=== PATIENT | male | born 1980 | race American Indian/Alaskan Native ===

== ENCOUNTER 2017-08-06 12:13 | Emergency (ER) | payer MEDICAID ==
[2017-08-06] MEDS ORDERED: Sodium Chloride 0.9% 10 ML Syringe FLUSH PRN (12:26)
--- NOTE | 2017-08-06 12:50 | EDM.PDOC ---
ED HPI GENERAL MEDICAL PROBLEM - General Chief Complaint: Neuro Symptoms/Deficits Stated Complaint: CAME BY AMBULANCE Time Seen by Provider: 08/06/17 12:30 Source of Information: Reports: Patient, EMS, EMS Notes Reviewed, RN, RN Notes Reviewed History Limitations: Reports: No Limitations - History of Present Illness INITIAL COMMENTS - FREE TEXT/NARRATIVE: Pt presents to the ER per ambulance with c/o dizziness beginning this morning. He states he has fallen into a wall while walking due to the dizziness. He states he has a pressure on the top of his head. When asked to rate the pain, he states it is not a pain, but a pressure in the top of his head. He states his vision is blurry at times with the dizziness. Patient denies fever, chills, chest pain, sob, N/V/D. Onset: Today, Sudden Duration: Getting Worse Location: Reports: Head Quality: Reports: Pressure Severity: Severe Improves with: Reports: None Worsens with: Reports: None Context: Reports: Activity Associated Symptoms: Reports: No Other Symptoms - Related Data Allergies Allergy/AdvReac Type Severity Reaction Status Date / Time codeine Allergy Hives Verified 08/06/17 12:41 Home Meds: Home Meds Acetaminophen 1 tab PO Q6H PRN 06/04/16 [History] Albuterol [Proventil HFA] 2 puff INH Q6H PRN 06/04/16 [History] Melatonin 3 mg PO BEDTIME PRN 06/04/16 [History] Ondansetron [Ondansetron] 4 mg PO Q12H PRN 06/04/16 [History] Polyethylene Glycol 3350 [MiraLAX] 17 gm PO DAILY 06/22/16 [History] Buprenorphine HCl/Naloxone HCl [Zubsolv 8.6-2.1 mg Tablet Sl] 2 each PO DAILY [History] Escitalopram [Lexapro] 20 mg PO BEDTIME 08/06/17 [History] buPROPion [Wellbutrin SR] 100 mg PO DAILY 08/06/17 [History] Past Medical History HEENT History: Reports: None Cardiovascular History: Reports: Hypertension Respiratory History: Reports: Asthma Gastrointestinal History: Reports: Chronic Constipation, GERD Genitourinary History: Reports: None Musculoskeletal History: Reports: None Neurological History: Reports: None Psychiatric History: Reports: Anxiety, Other (See Below) Other Psychiatric History: TOBACCO HABITUATION, narcotic dependence per progress note of Kaley Monzon Endocrine/Metabolic History: Reports: None Hematologic History: Reports: None Immunologic History: Reports: None Oncologic (Cancer) History: Reports: None Dermatologic History: Reports: Other (See Below) Other Dermatologic History: mosquito bites that won't heal - Infectious Disease History Other Infectious Disease History: unsure of infectious health hx - Past Surgical History Head Surgeries/Procedures: Reports: None HEENT Surgical History: Reports: None Cardiovascular Surgical History: Reports: None GI Surgical History: Reports: None Social & Family History - Family History Cardiac: Reports: CAD Endocrine/Metabolic: Reports: Diabetes, type II - Tobacco Use Smoking Status *Q: Never Smoker Years of Tobacco use: 21 Packs/Tins Daily: 0.5 Second Hand Smoke Exposure: Yes - Caffeine Use Caffeine Use: Reports: Soda - Recreational Drug Use Recreational Drug Use: No Recreational Drug Type: ED ROS GENERAL - Review of Systems Review Of Systems: ROS reveals no pertinent complaints other than HPI. ED EXAM, DIZZINESS - Physical Exam Exam: See Below Exam Limited By: No Limitations General Appearance: Alert, WD/WN, No Apparent Distress Ears: Normal External Exam Nose: Normal Inspection Throat/Mouth: Normal Inspection, Normal Voice, No Airway Compromise Head Exam: Atraumatic, Normocephalic Neck: Normal Inspection, Supple, Non-Tender, Full Range of Motion Respiratory/Chest: No Respiratory Distress, Lungs Clear, Normal Breath Sounds, No Accessory Muscle Use, Chest Non-Tender Cardiovascular: Normal Peripheral Pulses, Regular Rate, Rhythm, No Edema, No Gallop, No JVD, No Murmur, No Rub GI/Abdominal: Normal Bowel Sounds, Soft, Non-Tender, No Organomegaly, No Distention, No Abnormal Bruit, No Mass (Male) Exam: Deferred Rectal (Males) Exam: Deferred Neurological: Alert, No Motor/Sensory Deficits, Oriented x 3 Back Exam: Normal Inspection, Full Range of Motion Extremities: Normal Inspection, Normal Range of Motion, Non-Tender, No Pedal Edema, Normal Capillary Refill Psychiatric: Anxious Skin Exam: Warm, Intact, Normal Color, No Rash, Diaphoretic EKG INTERPRETATION EKG Date: 08/06/17 Time: 13:02 Rhythm: NSR Miles: Normal P-Wave: Present QRS: Normal ST-T: Normal QT: Normal Comparison: NA - No Prior EKG Course - Vital Signs Last Recorded V/S: Last Vital Signs Temp 97.3 F 08/06/17 12:50 Pulse 83 08/06/17 12:50 Resp 15 08/06/17 12:50 BP 152/81 H 08/06/17 12:50 Pulse Ox 99 08/06/17 12:50 - Orders/Labs/Meds Orders: Active Orders 24 hr Category Date Time Status EKG Documentation Completion [RC] STAT Care 08/06/17 12:27 Active Peripheral IV Care [RC] . DIRECTED Care 08/06/17 12:27 Active Sodium Chloride 0.9% [Saline Flush] Med 08/06/17 12:26 Active 10 ml FLUSH ASDIRECTED PRN Peripheral IV Insertion Adult [OM.PC] Stat Oth 08/06/17 12:26 Ordered Medication Orders Sodium Chloride (Saline Flush) 10 ml FLUSH ASDIRECTED PRN PRN Reason: Keep Vein Open Last Admin: 08/06/17 14:30 Dose: 10 ml Labs: Laboratory Tests 08/06/17 08/06/17 08/06/17 Range/Units 12:34 12:34 13:41 WBC 6.4 (5.0-10.0) 10^3/uL RBC 5.12 (4.6-6.2) 10^6/uL Hgb 15.2 (14.0-18.0) g/dL Hct 43.9 (40.0-54.0) % MCV 85.7 (80-100) fL MCH 29.7 (27.0-34.0) pg MCHC 34.6 (33.0-35.0) g/dL Plt Count 256 (150-450) 10^3/uL Neut % (Auto) 59.4 (42.2-75.2) % Lymph % (Auto) 27.9 (20.5-50.1) % [place] % (Auto) 8.5 H (2-8) % Eos % (Auto) 3.9 H (1.0-3.0) % Baso % (Auto) 0.3 (0.0-1.0) % Sodium 141 (135-145) mmol/L Potassium 3.5 L (3.6-5.0) mmol/L Chloride 104 (101-111) mmol/L Carbon Dioxide 26.0 (21.0-31.0) mmol/L Anion Gap 14.5 BUN 7 (7-18) mg/dL Creatinine 0.7 (0.6-1.3) mg/dL Est Cr Clr Drug Dosing 145.89 mL/min Estimated GFR (MDRD) > 60 BUN/Creatinine Ratio 10.00 Glucose 95 (74-105) mg/dL Calcium 9.5 (8.4-10.2) mg/dl Total Bilirubin 0.5 (0.2-1.0) mg/dL AST 52 H (10-42) IU/L ALT 69 H (10-60) IU/L Alkaline Phosphatase 138 H (42-121) IU/L Troponin I < 0.02 (0.00-0.02) ng/ml Total Protein 7.7 (6.7-8.2) g/dl Albumin 4.4 (3.2-5.5) g/dl Globulin 3.3 Albumin/Globulin Ratio 1.33 Urine Color (YELLOW) Urine Appearance (CLEAR) Urine pH (5.0-9.0) Ur Specific [place] (1.005-1.030) Urine Protein (NEGATIVE) Urine Glucose (UA) (NEGATIVE) Urine Ketones (NEGATIVE) Urine Occult Blood (NEGATIVE) Urine Nitrite (NEGATIVE) Urine Bilirubin (NEGATIVE) Urine Urobilinogen (0.2-1.0) mg/dL Ur Leukocyte Esterase (NEGATIVE) Urine RBC /HPF Urine WBC (0-5/HPF) /HPF Ur Epithelial Cells /HPF Urine Bacteria (0-FEW/HPF) /HPF Urine Mucus /LPF Urine Opiates Screen Negative (NEGATIVE) Ur Oxycodone Screen Negative (NEGATIVE) Urine Methadone Screen Negative (NEGATIVE) Ur Barbiturates Screen Negative (NEGATIVE) U Tricyclic Antidepress Negative (NEGATIVE) Ur Phencyclidine Scrn Negative (NEGATIVE) Ur Amphetamine Screen Negative (NEGATIVE) U Methamphetamines Scrn Negative (NEGATIVE) Urine MDMA Screen Negative (NEGATIVE) U Benzodiazepines Scrn Negative (NEGATIVE) Urine Cocaine Screen Negative (NEGATIVE) U Marijuana (THC) Screen Negative (NEGATIVE) Ethyl Alcohol < 5 mg/dL 08/06/17 Range/Units 13:41 WBC (5.0-10.0) 10^3/uL RBC (4.6-6.2) 10^6/uL Hgb (14.0-18.0) g/dL Hct (40.0-54.0) % MCV (80-100) fL MCH (27.0-34.0) pg MCHC (33.0-35.0) g/dL Plt Count (150-450) 10^3/uL Neut % (Auto) (42.2-75.2) % Lymph % (Auto) (20.5-50.1) % [place] % (Auto) (2-8) % Eos % (Auto) (1.0-3.0) % Baso % (Auto) (0.0-1.0) % Sodium (135-145) mmol/L Potassium (3.6-5.0) mmol/L Chloride (101-111) mmol/L Carbon Dioxide (21.0-31.0) mmol/L Anion Gap BUN (7-18) mg/dL Creatinine (0.6-1.3) mg/dL Est Cr Clr Drug Dosing mL/min Estimated GFR (MDRD) BUN/Creatinine Ratio Glucose (74-105) mg/dL Calcium (8.4-10.2) mg/dl Total Bilirubin (0.2-1.0) mg/dL AST (10-42) IU/L ALT (10-60) IU/L Alkaline Phosphatase (42-121) IU/L Troponin I (0.00-0.02) ng/ml Total Protein (6.7-8.2) g/dl Albumin (3.2-5.5) g/dl Globulin Albumin/Globulin Ratio Urine Color Straw (YELLOW) Urine Appearance Clear (CLEAR) Urine pH 5.5 (5.0-9.0) Ur Specific [place] >= 1.030 (1.005-1.030) Urine Protein Negative (NEGATIVE) Urine Glucose (UA) Negative (NEGATIVE) Urine Ketones Trace H (NEGATIVE) Urine Occult Blood Trace-intact H (NEGATIVE) Urine Nitrite Negative (NEGATIVE) Urine Bilirubin Small H (NEGATIVE) Urine Urobilinogen 0.2 (0.2-1.0) mg/dL Ur Leukocyte Esterase Negative (NEGATIVE) Urine RBC 0-5 /HPF Urine WBC 0-5 (0-5/HPF) /HPF Ur Epithelial Cells Rare /HPF Urine Bacteria Rare (0-FEW/HPF) /HPF Urine Mucus Many H /LPF Urine Opiates Screen (NEGATIVE) Ur Oxycodone Screen (NEGATIVE) Urine Methadone Screen (NEGATIVE) Ur Barbiturates Screen (NEGATIVE) U Tricyclic Antidepress (NEGATIVE) Ur Phencyclidine Scrn (NEGATIVE) Ur Amphetamine Screen (NEGATIVE) U Methamphetamines Scrn (NEGATIVE) Urine MDMA Screen (NEGATIVE) U Benzodiazepines Scrn (NEGATIVE) Urine Cocaine Screen (NEGATIVE) U Marijuana (THC) Screen (NEGATIVE) Ethyl Alcohol mg/dL Meds: Medications Generic Name Dose Route Start Last Admin Trade Name Freq PRN Reason Stop Dose Admin Sodium Chloride 10 ml 08/06/17 12:26 08/06/17 14:30 Saline Flush FLUSH 10 ml ASDIRECTED PRN Administration Keep Vein Open Discontinued Medications Generic Name Dose Route Start Last Admin Trade Name Freq PRN Reason Stop Dose Admin Lorazepam 1 mg 08/06/17 13:31 08/06/17 14:30 Ativan IVPUSH 08/06/17 13:32 1 mg ONETIME ONE Administration Departure - Departure Time of Disposition: 14:07 Disposition: Home, Self-Care 01 Condition: Fair Clinical Impression: Dizziness - Discharge Information Instructions: Dizziness, [id number] Forms: ED Department Discharge Additional Instructions: Follow up with your primary care facility next week. Drink plenty of fluids No driving until symptoms are completely resolved. - My Orders Last 24 Hours: My Active Orders 08/06/17 12:26 Sodium Chloride 0.9% [Saline Flush] 10 ml FLUSH ASDIRECTED PRN Peripheral IV Insertion Adult [OM.PC] Stat 08/06/17 12:27 EKG Documentation Completion [RC] STAT Peripheral IV Care [RC] . DIRECTED - Assessment/Plan Last 24 Hours: My Active Orders 08/06/17 12:26 Sodium Chloride 0.9% [Saline Flush] 10 ml FLUSH ASDIRECTED PRN Peripheral IV Insertion Adult [OM.PC] Stat 08/06/17 12:27 EKG Documentation Completion [RC] STAT Peripheral IV Care [RC] . DIRECTED
[2017-08-06 12:55] VITALS: BP 152/81
[2017-08-06 13:00] LABS: CHLORIDE,CL 104 mmol/L (101-111); SODIUM,NA 141 mmol/L (135-145)
--- NOTE | 2017-08-06 13:19 | CT ---
CLINICAL HISTORY: 37 year-old 268 pound male with dizziness and "pressure top of head". SCAN TECHNIQUE: Volume acquisition of data from the head and brain obtained while the patient was lyi ng supine on the Siemens multislice scanner [place], [place]. All data archived in the PACS system for storage, and study (bone/brain windows). INTERPRETATION: Focal soft tissue swelling convexity of the head posteriorly without sign of underlying foreign body, bony calvarial fracture or brain contusion. No abnormal extracerebral/intracranial epidural or subdu ral hematoma. Symmetric clear pneumatization of the paranasal and mastoid sinuses. Nasal septum is straight in the midline. Symmetric daugherty-white matter pattern (mild atrophy) and underlying mirror-image normal ventricular sys tem. Physiologic midline pineal and symmetric choroid plexus calcifications. No supratentorial or posterior fossa mass lesion. No hydrocephalus. No focal areas of ischemic infarct, encephalomalacia or signs of acute intracerebral/intraventricular /subarachnoid bleed. Cerebellum and brainstem unremarkable. CONCLUSION: No intracranial mass, hydrocephalus or ischemic/hemorrhagic infarct.
[2017-08-06] MEDS ORDERED: LORazepam 2 MG/ML Syringe IVPUSH ONE (13:31)
--- NOTE | 2017-08-09 08:59 | EKG ---
08/06/2017- MARK UNGER - This 12-lead EKG shows normal sinus rhythm with heart rate of 70. No significant ST elevation or ST depression noted on this 12-lead EKG. Normal EKG at this time. [facility] /[id number]
== END 2017-08-06 15:02 | disposition home or self-care (01) ==
LOC: DL.ED 12:13
DX: R42 Dizziness and giddiness (principal); Z88.5 Allergy status to narcotic agent; Z79.899 Other long term (current) drug therapy
CPT/HCPCS: 36415; 70450; 80053; 80305; 81001; 84484; 85025; 93005; 96374; 99285; G0480; J2060; J7050

== ENCOUNTER 2018-04-22 17:25 | Emergency (ER) | payer MEDICAID ==
[2018-04-22] MEDS ORDERED: Aspirin 81 MG Tab.Chew PO ONE (18:00)
--- NOTE | 2018-04-22 18:06 | EDM.PDOC ---
ED HPI GENERAL MEDICAL PROBLEM - General Chief Complaint: Cardiovascular Problem Stated Complaint: BLOOD PRESSURE REALLY HIGH Time Seen by Provider: 04/22/18 17:55 Source of Information: Reports: Patient History Limitations: Reports: No Limitations - History of Present Illness INITIAL COMMENTS - FREE TEXT/NARRATIVE: This 38 yo male patient reports to the ED due to having high blood pressure while at an appointment in [employer]. The patient reports that he has noticed some increased chest pressure since about 1430 today. The patient reports that he initially had a little headache and some numbness and tingling in his left arm and hand. The patient reports the left arm symptoms have subsided at this time. The patient reports that his bottom number of his blood pressure was in the 100' s while at the clinic, but he does not recall the top number. The patient reports his chest pressure is currently a 3/10. Onset: Today Onset Date: 04/22/18 Onset Time: 14:30 Location: Reports: Chest Quality: Reports: Dull, Pressure Severity: Moderate Improves with: Reports: None Worsens with: Reports: None Associated Symptoms: Reports: No Other Symptoms Left Chest Pain Score (Numeric/FACES): 3 - Related Data Allergies Allergy/AdvReac Type Severity Reaction Status Date / Time codeine Allergy Hives Verified 04/22/18 18:00 Home Meds: Home Meds Acetaminophen 1 tab PO Q6H PRN 06/04/16 [History] Albuterol [Proventil HFA] 2 puff INH Q6H PRN 06/04/16 [History] Melatonin 3 mg PO BEDTIME PRN 06/04/16 [History] Ondansetron 4 mg PO Q12H PRN 06/04/16 [History] Polyethylene Glycol 3350 [MiraLAX] 17 gm PO DAILY 06/22/16 [History] Buprenorphine HCl/Naloxone HCl [Zubsolv 8.6-2.1 mg Tablet Sl] 2 each PO DAILY [History] Escitalopram [Lexapro] 20 mg PO BEDTIME 08/06/17 [History] buPROPion [Wellbutrin SR] 100 mg PO DAILY 08/06/17 [History] Past Medical History HEENT History: Reports: None Cardiovascular History: Reports: Hypertension Respiratory History: Reports: Asthma Gastrointestinal History: Reports: Chronic Constipation, GERD Genitourinary History: Reports: None Musculoskeletal History: Reports: None Neurological History: Reports: None Psychiatric History: Reports: Anxiety, Other (See Below) Other Psychiatric History: TOBACCO HABITUATION, narcotic dependence per progress note of Kaley Monzon Endocrine/Metabolic History: Reports: None Hematologic History: Reports: None Immunologic History: Reports: None Oncologic (Cancer) History: Reports: None Dermatologic History: Reports: Other (See Below) Other Dermatologic History: mosquito bites that won't heal - Infectious Disease History Other Infectious Disease History: unsure of infectious health hx - Past Surgical History Head Surgeries/Procedures: Reports: None HEENT Surgical History: Reports: None Cardiovascular Surgical History: Reports: None GI Surgical History: Reports: None Social & Family History - Family History Family Medical History: Unobtainable Cardiac: Reports: CAD Endocrine/Metabolic: Reports: Diabetes, type II - Caffeine Use Caffeine Use: Reports: Soda ED ROS GENERAL - Review of Systems Review Of Systems: ROS reveals no pertinent complaints other than HPI. ED EXAM, GENERAL - Physical Exam Exam: See Below Exam Limited By: No Limitations General Appearance: Alert, WD/WN, Mild Distress Eye Exam: Bilateral Eye: EOMI, Normal Inspection, PERRL Ears: Normal External Exam, Normal Canal, Hearing Grossly Normal, Normal TMs Nose: Normal Inspection, Normal Mucosa, No Blood Throat/Mouth: Normal Inspection, Normal Lips, Normal Teeth, Normal Gums, Normal Oropharynx, Normal Voice, No Airway Compromise Head: Atraumatic, Normocephalic Neck: Normal Inspection, Supple, Non-Tender, Full Range of Motion Respiratory/Chest: No Respiratory Distress, Lungs Clear, Normal Breath Sounds, No Accessory Muscle Use, Chest Non-Tender Cardiovascular: Normal Peripheral Pulses, Regular Rate, Rhythm, No Edema, No Gallop, No JVD, No Murmur, No Rub GI/Abdominal: Normal Bowel Sounds, Soft, Non-Tender, No Organomegaly, No Distention, No Abnormal Bruit, No Mass (Male) Exam: Deferred Rectal (Males) Exam: Deferred Back Exam: Normal Inspection, Full Range of Motion, NT Extremities: Normal Inspection, Normal Range of Motion, Non-Tender, Normal Capillary Refill, No Pedal Edema Neurological: Alert, Oriented, CN II-XII Intact, Normal Cognition, Normal Gait, Normal Reflexes, No Motor/Sensory Deficits Psychiatric: Normal Affect, Normal Mood Skin Exam: Warm, Dry, Intact, Normal Color, No Rash Lymphatic: No Adenopathy Course - Vital Signs Last Recorded V/S: Last Vital Signs Temp 36.6 C 04/22/18 17:48 Pulse 86 04/22/18 17:48 Resp 23 H 04/22/18 17:48 BP 149/82 H 04/22/18 17:48 Pulse Ox 95 04/22/18 17:48 - Orders/Labs/Meds Orders: Active Orders 24 hr Category Date Time Status EKG Documentation Completion [RC] URGENT Care 04/22/18 17:55 Ordered Chest 1V Frontal [CR] Urgent Exams 04/22/18 17:55 Ordered Labs: Laboratory Tests 04/22/18 04/22/18 Range/Units 18:06 18:06 WBC 8.2 (5.0-10.0) 10^3/uL RBC 5.03 (4.6-6.2) 10^6/uL Hgb 14.8 (14.0-18.0) g/dL Hct 42.5 (40.0-54.0) % MCV 84.5 (80-100) fL MCH 29.4 (27.0-34.0) pg MCHC 34.8 (33.0-35.0) g/dL Plt Count 249 (150-450) 10^3/uL Neut % (Auto) 51.3 (42.2-75.2) % Lymph % (Auto) 34.4 (20.5-50.1) % [place] % (Auto) 10.7 H (2-8) % Eos % (Auto) 3.1 H (1.0-3.0) % Baso % (Auto) 0.5 (0.0-1.0) % Sodium 139 (135-145) mmol/L Potassium 3.1 L (3.6-5.0) mmol/L Chloride 105 (101-111) mmol/L Carbon Dioxide 27.0 (21.0-31.0) mmol/L Anion Gap 10.1 BUN 5 L (7-18) mg/dL Creatinine 0.7 (0.6-1.3) mg/dL Est Cr Clr Drug Dosing 139.79 mL/min Estimated GFR (MDRD) > 60 BUN/Creatinine Ratio 7.14 Glucose 98 (74-105) mg/dL Calcium 8.4 (8.4-10.2) mg/dl Total Bilirubin 0.5 (0.2-1.0) mg/dL AST 57 H (10-42) IU/L ALT 74 H (10-60) IU/L Alkaline Phosphatase 114 (42-121) IU/L Troponin I < 0.02 (0.00-0.02) ng/ml Total Protein 7.1 (6.7-8.2) g/dl Albumin 4.0 (3.2-5.5) g/dl Globulin 3.1 Albumin/Globulin Ratio 1.29 Meds: Medications Discontinued Medications Generic Name Dose Route Start Last Admin Trade Name Freq PRN Reason Stop Dose Admin Aspirin 324 mg 04/22/18 18:00 04/22/18 18:14 Aspirin PO 04/22/18 18:01 324 mg ONETIME ONE Administration Departure - Departure Time of Disposition: 18:43 Disposition: Home, Self-Care 01 Condition: Good Clinical Impression: Chest wall pain, Anxiety Instructions: Panic Attack, [id number], Nonspecific Chest Pain, [id number] Forms: ED Department Discharge Care Plan Goals: The patient was advised of the examination, lab, x-ray and EKG results during the visit. The patient was encouraged to take his medications as prescribed by his primary care facility. If the patient has any additional symptoms or concerns, the patient should follow-up with his primary care facility or return to the emergency department. - My Orders Last 24 Hours: My Active Orders 04/22/18 17:55 EKG Documentation Completion [RC] URGENT Chest 1V Frontal [CR] Urgent - Assessment/Plan Last 24 Hours: My Active Orders 04/22/18 17:55 EKG Documentation Completion [RC] URGENT Chest 1V Frontal [CR] Urgent
[2018-04-22 18:33] LABS: ANION GAP 10.1; CHLORIDE,CL 105 mmol/L (101-111); SODIUM,NA 139 mmol/L (135-145)
[2018-04-22 18:50] VITALS: BP 132/80
--- NOTE | 2018-04-26 07:53 | EKG ---
04/22/2018- MARK UNGER - EKG per my reading shows sinus tachycardia at the rate of 98. [facility] /[id number]
== END 2018-04-22 18:49 | disposition home or self-care (01) ==
LOC: DL.ED 17:25
DX: R07.89 Other chest pain (principal); F41.9 Anxiety disorder, unspecified; I10 Essential (primary) hypertension; J45.909 Unspecified asthma, uncomplicated; K21.9 Gastro-esophageal reflux disease without esophagitis; Z88.5 Allergy status to narcotic agent; Z79.899 Other long term (current) drug therapy
CPT/HCPCS: 36415; 71045; 80053; 84484; 85025; 93005; 99285; A9270

== ENCOUNTER 2018-05-18 14:38 | Observation (INO) | payer MEDICAID ==
--- NOTE | 2018-05-18 15:10 | EDM.PDOC ---
ED HPI GENERAL MEDICAL PROBLEM - General Chief Complaint: General Stated Complaint: [id number] HIGH BLOOD SUGAR IN 500'S DIABETES Time Seen by Provider: 05/18/18 15:00 Source of Information: Reports: Patient History Limitations: Reports: No Limitations - History of Present Illness INITIAL COMMENTS - FREE TEXT/NARRATIVE: This 38 yo male patient reports to the ED after being advised to come to the ED from Dr. Morfin's nurse. The patient reports that his blood sugar has been high (500+) since last Wednesday. The patient reports that he has also been having blurred vision since that time. The patient reports his vision has been getting worse throughout the weekend. The patient reports that he was recently diagnosed with diabetes and is currently on Metformin. Onset Date: 05/13/18 Duration: Constant, Getting Worse Location: Reports: Generalized Quality: Reports: Other (blurred vision ) Severity: Severe Improves with: Reports: None Worsens with: Reports: None Context: Reports: Other Associated Symptoms: Reports: Diaphoresis Treatments [employer]: Reports: Other Medication(s) (Metformin) - Related Data Allergies Allergy/AdvReac Type Severity Reaction Status Date / Time codeine Allergy Hives Verified 05/18/18 14:45 Home Meds: Home Meds Acetaminophen 1 tab PO Q6H PRN 06/04/16 [History] Albuterol [Proventil HFA] 2 puff INH Q6H PRN 06/04/16 [History] Buprenorphine HCl/Naloxone HCl [Zubsolv 8.6-2.1 mg Tablet Sl] 2 each PO DAILY [History] buPROPion [Wellbutrin SR] 100 mg PO DAILY 08/06/17 [History] PARoxetine HCl [Paroxetine HCl] 40 mg PO DAILY 05/18/18 [History] Past Medical History HEENT History: Reports: None Cardiovascular History: Reports: Hypertension Respiratory History: Reports: Asthma Gastrointestinal History: Reports: Chronic Constipation, GERD Genitourinary History: Reports: None Musculoskeletal History: Reports: None Neurological History: Reports: None Psychiatric History: Reports: Anxiety, Other (See Below) Other Psychiatric History: TOBACCO HABITUATION, narcotic dependence per progress note of Kaley Monzon Endocrine/Metabolic History: Reports: Diabetes, Type I Hematologic History: Reports: None Immunologic History: Reports: None Oncologic (Cancer) History: Reports: None Dermatologic History: Reports: Other (See Below) Other Dermatologic History: mosquito bites that won't heal - Infectious Disease History Other Infectious Disease History: unsure of infectious health hx - Past Surgical History Head Surgeries/Procedures: Reports: None HEENT Surgical History: Reports: None Cardiovascular Surgical History: Reports: None GI Surgical History: Reports: None Social & Family History - Family History Family Medical History: Unobtainable Cardiac: Reports: CAD Endocrine/Metabolic: Reports: Diabetes, type II - Tobacco Use Smoking Status *Q: Current Every Day Smoker Years of Tobacco use: 36 Packs/Tins Daily: 1 - Caffeine Use Caffeine Use: Reports: Soda - Recreational Drug Use Recreational Drug Use: No ED ROS GENERAL - Review of Systems Review Of Systems: ROS reveals no pertinent complaints other than HPI. ED EXAM, GENERAL - Physical Exam Exam: See Below Exam Limited By: No Limitations General Appearance: Alert, WD/WN, Moderate Distress, Obese Eye Exam: Bilateral Eye: EOMI, Normal Inspection, PERRL, Vision Changes (The patient reports blurred vision (unable to focus on anything) ) Ears: Normal External Exam, Normal Canal, Hearing Grossly Normal, Normal TMs Nose: Normal Inspection, Normal Mucosa, No Blood Throat/Mouth: Normal Inspection, Normal Lips, Normal Teeth, Normal Gums, Normal Oropharynx, Normal Voice, No Airway Compromise Head: Atraumatic, Normocephalic Neck: Normal Inspection, Supple, Non-Tender, Full Range of Motion Respiratory/Chest: No Respiratory Distress, Lungs Clear, Normal Breath Sounds, No Accessory Muscle Use, Chest Non-Tender Cardiovascular: Normal Peripheral Pulses, Regular Rate, Rhythm, No Edema, No Gallop, No JVD, No Murmur, No Rub GI/Abdominal: Normal Bowel Sounds, Soft, Non-Tender, No Organomegaly, No Distention, No Abnormal Bruit, No Mass, Other (obese) (Male) Exam: Deferred Rectal (Males) Exam: Deferred Back Exam: Normal Inspection Extremities: Normal Inspection, Normal Range of Motion, Non-Tender, Normal Capillary Refill, No Pedal Edema Neurological: Alert, Oriented, CN II-XII Intact, Normal Cognition, Normal Gait, Normal Reflexes, No Motor/Sensory Deficits Psychiatric: Normal Affect, Normal Mood Skin Exam: Warm, Intact, Normal Color, No Rash, Diaphoretic Lymphatic: No Adenopathy Course - Vital Signs Last Recorded V/S: Last Vital Signs Temp 36.6 C 08/15/18 17:28 Pulse 86 05/18/18 17:28 Resp 18 05/18/18 17:28 BP 137/77 05/18/18 17:28 Pulse Ox 96 05/18/18 17:28 - Orders/Labs/Meds Orders: Active Orders 24 hr Category Date Time Status Glucose [Blood Glucose Check, Bedside] [RC] ONETIME Care 05/18/18 16:48 Ordered Sodium Chloride 0.9% [Normal Saline] 1,000 ml Med 05/18/18 17:15 Ordered IV .BOLUS Medication Orders Sodium Chloride (Normal Saline) 1,000 mls @ 250 mls/hr IV .BOLUS ONE Stop: 05/18/18 21:14 Last Admin: 05/18/18 17:20 Dose: 250 mls/hr Labs: Laboratory Tests 05/18/18 05/18/18 05/18/18 Range/Units 14:48 14:59 15:06 WBC (5.0-10.0) 10^3/uL RBC (4.6-6.2) 10^6/uL Hgb (14.0-18.0) g/dL Hct (40.0-54.0) % MCV (80-100) fL MCH (27.0-34.0) pg MCHC (33.0-35.0) g/dL Plt Count (150-450) 10^3/uL Neut % (Auto) (42.2-75.2) % Lymph % (Auto) (20.5-50.1) % [place] % (Auto) (2-8) % Eos % (Auto) (1.0-3.0) % Baso % (Auto) (0.0-1.0) % ABG pH 7.38 (7.35-7.45) ABG pCO2 41 (35-45) mmHg ABG pO2 70 (70-100) mmHg ABG HCO3 23.6 (22-26) mmol/L ABG O2 Saturation 94 L (95-100) % ABG Base Excess -1 ((-2)-(+3)) mmol/L Kye Test Y O2 Delivery Device Room air Sodium (135-145) mmol/L Potassium (3.6-5.0) mmol/L Chloride (101-111) mmol/L Carbon Dioxide (21.0-31.0) mmol/L Anion Gap BUN (7-18) mg/dL Creatinine (0.6-1.3) mg/dL Est Cr Clr Drug Dosing mL/min Estimated GFR (MDRD) BUN/Creatinine Ratio Glucose (74-105) mg/dL POC Glucose 446 H* (70-105) mg/dl Calcium (8.4-10.2) mg/dl Total Bilirubin (0.2-1.0) mg/dL AST (10-42) IU/L ALT (10-60) IU/L Alkaline Phosphatase (42-121) IU/L Ammonia (11-35) umol/L Total Protein (6.7-8.2) g/dl Albumin (3.2-5.5) g/dl Globulin Albumin/Globulin Ratio Ketones Negative 05/18/18 05/18/18 05/18/18 Range/Units 15:06 15:06 16:25 WBC 7.2 (5.0-10.0) 10^3/uL RBC 5.05 (4.6-6.2) 10^6/uL Hgb 14.8 (14.0-18.0) g/dL Hct 42.0 (40.0-54.0) % MCV 83.2 (80-100) fL MCH 29.3 (27.0-34.0) pg MCHC 35.2 H (33.0-35.0) g/dL Plt Count 223 (150-450) 10^3/uL Neut % (Auto) 61.9 (42.2-75.2) % Lymph % (Auto) 27.3 (20.5-50.1) % [place] % (Auto) 8.3 H (2-8) % Eos % (Auto) 1.9 (1.0-3.0) % Baso % (Auto) 0.6 (0.0-1.0) % ABG pH (7.35-7.45) ABG pCO2 (35-45) mmHg ABG pO2 (70-100) mmHg ABG HCO3 (22-26) mmol/L ABG O2 Saturation (95-100) % ABG Base Excess ((-2)-(+3)) mmol/L Kye Test O2 Delivery Device Sodium 133 L (135-145) mmol/L Potassium 3.7 (3.6-5.0) mmol/L Chloride 98 L (101-111) mmol/L Carbon Dioxide 25.0 (21.0-31.0) mmol/L Anion Gap 13.7 BUN 11 (7-18) mg/dL Creatinine 0.9 (0.6-1.3) mg/dL Est Cr Clr Drug Dosing 108.72 mL/min Estimated GFR (MDRD) > 60 BUN/Creatinine Ratio 12.22 Glucose 533 H* (74-105) mg/dL POC Glucose (70-105) mg/dl Calcium 8.7 (8.4-10.2) mg/dl Total Bilirubin 0.8 (0.2-1.0) mg/dL AST 133 H (10-42) IU/L ALT 145 H (10-60) IU/L Alkaline Phosphatase 173 H (42-121) IU/L Ammonia 50 H (11-35) umol/L Total Protein 7.2 (6.7-8.2) g/dl Albumin 4.2 (3.2-5.5) g/dl Globulin 3.0 Albumin/Globulin Ratio 1.40 Ketones // Range/Units 16:49 WBC (5.0-10.0) 10^3/uL RBC (4.6-6.2) 10^6/uL Hgb (14.0-18.0) g/dL Hct (40.0-54.0) % MCV (80-100) fL MCH (27.0-34.0) pg MCHC (33.0-35.0) g/dL Plt Count (150-450) 10^3/uL Neut % (Auto) (42.2-75.2) % Lymph % (Auto) (20.5-50.1) % [place] % (Auto) (2-8) % Eos % (Auto) (1.0-3.0) % Baso % (Auto) (0.0-1.0) % ABG pH (7.35-7.45) ABG pCO2 (35-45) mmHg ABG pO2 (70-100) mmHg ABG HCO3 (22-26) mmol/L ABG O2 Saturation (95-100) % ABG Base Excess ((-2)-(+3)) mmol/L Kye Test O2 Delivery Device Sodium (135-145) mmol/L Potassium (3.6-5.0) mmol/L Chloride (101-111) mmol/L Carbon Dioxide (21.0-31.0) mmol/L Anion Gap BUN (7-18) mg/dL Creatinine (0.6-1.3) mg/dL Est Cr Clr Drug Dosing mL/min Estimated GFR (MDRD) BUN/Creatinine Ratio Glucose (74-105) mg/dL POC Glucose 393 H (70-105) mg/dl Calcium (8.4-10.2) mg/dl Total Bilirubin (0.2-1.0) mg/dL AST (10-42) IU/L ALT (10-60) IU/L Alkaline Phosphatase (42-121) IU/L Ammonia (11-35) umol/L Total Protein (6.7-8.2) g/dl Albumin (3.2-5.5) g/dl Globulin Albumin/Globulin Ratio Ketones Meds: Medications Generic Name Dose Route Start Last Admin Trade Name Freq PRN Reason Stop Dose Admin Sodium Chloride 1,000 mls @ 250 mls/hr 05/18/18 17:15 05/18/18 17:20 Normal Saline IV 05/18/18 21:14 250 mls/hr .BOLUS ONE Administration Discontinued Medications Generic Name Dose Route Start Last Admin Trade Name Freq PRN Reason Stop Dose Admin Sodium Chloride 1,000 mls @ 999 mls/hr 05/18/18 15:36 05/18/18 15:44 Normal Saline IV 05/18/18 16:36 999 mls/hr .BOLUS ONE Administration Departure - Departure Time of Disposition: 17:31 Disposition: Admitted As Inpatient 67 Condition: Fair Clinical Impression: Hyperglycemia - Discharge Information *PRESCRIPTION DRUG MONITORING PROGRAM REVIEWED*: Not Applicable *COPY OF PRESCRIPTION DRUG MONITORING REPORT IN PATIENT NATALIYA: Not Applicable Care Plan Goals: Discussed the patient's history, examination, lab results, treatments and previous CT results with Dr. Edwards. Dr. Edwards accepted the patient for continued evaluation and further management as an observation patient at [facility] in [place]. - My Orders Last 24 Hours: My Active Orders 05/18/18 16:48 Glucose [Blood Glucose Check, Bedside] [RC] ONETIME 05/18/18 17:15 Sodium Chloride 0.9% [Normal Saline] 1,000 ml IV .BOLUS - Assessment/Plan Last 24 Hours: My Active Orders 05/18/18 16:48 Glucose [Blood Glucose Check, Bedside] [RC] ONETIME 05/18/18 17:15 Sodium Chloride 0.9% [Normal Saline] 1,000 ml IV .BOLUS
[2018-05-18 15:12] LABS: BASE EXCESS ARTERIAL -1 mmol/L ((-2)-(+3)); BICARBONATE,ARTERIAL 23.6 mmol/L (22-26); O2 DELIVERY DEVICE ROOM AIR; O2 SATURATION ARTERIAL 94 % (95-100); PCO2 ARTERIAL 41 mmHg (35-45); PO2 ARTERIAL 70 mmHg (70-100)
[2018-05-18 15:13] LABS: ALLEN TEST Y
[2018-05-18] MEDS ORDERED: Sodium Chloride 0.9% 1,000 ML IV ONE ×2 (15:36→17:15)
[2018-05-18 15:44] LABS: ANION GAP 13.7; CHLORIDE,CL 98 mmol/L (101-111); SODIUM,NA 133 mmol/L (135-145)
[2018-05-18] MEDS ORDERED: Albuterol 0.083% 2.5 MG/3 ML Neb Soln NEB PRN (18:33)
[2018-05-18] MEDS ORDERED: Acetaminophen 325 MG Tab PO PRN (18:33)
[2018-05-18] MEDS ORDERED: Ondansetron 4 MG Tab.DIS PO PRN (18:33)
[2018-05-18] MEDS ORDERED: 50% Dextrose in Water 50 ML Syringe IVPUSH PRN (18:36)
[2018-05-18] MEDS ORDERED: Acetaminophen 500 MG Tab PO PRN (18:40)
[2018-05-18] MEDS ORDERED: Albuterol 6.7 GM Inhaler INH PRN (18:40)
[2018-05-18] MEDS ORDERED: LORazepam 0.5 MG Tab PO PRN ×2 (18:40→19:33)
[2018-05-18] MEDS ORDERED: Insulin Detemir 100 Units/ML 3 ML Pen SUBCUT SCH (18:45)
[2018-05-18] MEDS: Sodium Chloride 0.9% 1,000 ML IV SCH (21:23)
[2018-05-18] MEDS: Insulin Detemir 100 Units/ML 3 ML Pen SUBCUT SCH (21:24)
[2018-05-18] MEDS: PARoxetine 20 MG Tab PO SCH (21:24)
[2018-05-18] MEDS: Insulin Aspart 100 Units/ML 3 ML Pen SUBCUT SCH (21:26)
--- NOTE | 2018-05-19 01:49 | HP ---
CHIEF COMPLAINT: Blurring of the vision and elevated blood sugars. HISTORY OF PRESENTING ILLNESS: Mr. Mary Wilkes is a 38-year-old male with medical history significant for hypertension, type 2 diabetes mellitus, hyperlipidemia, history of asthma, anxiety, opioid addiction, obstructive sleep apnea requiring CPAP at night, mediastinal lymphadenopathy, currently undergoing evaluation in Pulmonary Clinic at [facility] in [place]. Presented to the ER today with complaints of having blurred vision, and uncontrolled blood sugars, and was noted to have blood sugar of 500, referring to observation status in the hospital. At this time, the patient claims that for the last 1 week he has been having some visual changes and was progressively getting worse. He also felt very thirsty, but has been drinking a lot of pop as he was getting thirsty and he has increased urination. He complaints of blurred vision, but no diplopia. Complains of mild headache. The patient had a CT scan of the head done recently by his primary care physician, and no acute findings noted at that time. The patient denies any fevers or chills at this time. No complaints of nausea, vomiting, or diarrhea. No complaints of abdominal pain. No complaints of cough with sputum. The patient denied any history of chest pains on exertion. No history of dyspnea on exertion. No history of orthopnea or paroxysmal nocturnal dyspnea. The patient denied any history of hematemesis, hematochezia, or melenic stools. He had 1 episode of bright red blood per rectum few weeks back. The patient had a colonoscopy an endoscope done 2 years back which showed evidence of hemorrhoids at that time. Normal bowel and bladder habits otherwise. REVIEW OF SYSTEMS: A complete review of system including skin, ear, nose, and throat, cardiovascular system, respiratory system, gastrointestinal system, genitourinary system, hematology, oncology, neurology, allergy, immunology, constitutional were all evaluated. PAST MEDICAL HISTORY: Significant for: 1. Hypertension. 2. Hyperlipidemia. 3. Type 2 diabetes mellitus. 4. History of asthma. 5. Anxiety. 6. Mediastinal lymphadenopathy. 7. Opioid addiction. 8. Obstructive sleep apnea on CPAP at night. PAST SURGICAL HISTORY: Significant for: 1. Endobronchial ultrasound. 2. Colonoscopy. 3. Bronchoscopy. FAMILY HISTORY: Significant for heart disease, hypertension, diabetes in his father. History of cancer in his aunts. SOCIAL HISTORY: The patient has chronic history of tobacco use. He smokes around half a pack a day. No history of alcohol intake. No history of illicit drug abuse. ALLERGIES: The patient noted to have allergies to codeine, which causes rash and hives. MEDICATIONS: Home medications include: 1. Metformin 500 mg twice a day. 2. Wellbutrin XL 300 mg daily. 3. Triamcinolone 1 topical daily. 4. Paroxetine 40 mg at bedtime. 5. Omeprazole 20 mg daily. 6. Dulera 2 puff inhalation daily. 7. Lorazepam at bedtime as needed. 8. Albuterol 2 puffs inhalation every 6 hours as needed. 9. Tylenol 500 mg every 6 hours as needed. PHYSICAL EXAMINATION: Vital Signs: Temperature of 97.6, pulse of 75, blood pressure of 143/80, respiratory rate of 20, saturating at 97% on room air. General Appearance: The patient is well oriented to time, place, and person. Follows commands spontaneously. Cardiovascular System: S1 and S2 heard with normal intensity. No gallops. Respiratory System: Clear to auscultation bilaterally. No wheeze. No crepitations. Abdomen: Soft. Bowel sounds positive. Mild discomfort. No rigidity. No guarding. No rebound tenderness. Extremities: No edema bilateral lower extremities. Scaly patch noted on the left lower extremity on the anterior ambrose which is chronic in nature as per the patient. Neurology: No gross focal neurological deficit. Pupils, extraocular movements intact. LABORATORY DATA: WBC 7.2, hemoglobin 14.8, hematocrit 42, platelet count 223. Sodium 133, potassium 3.7, chloride 98, bicarb 25, BUN 11, creatinine 0.9, glucose 533. AST 133, ALT 145, alkaline phosphorus 173, ammonia 50. Ketones negative. ASSESSMENT: 1. Type 2 diabetes mellitus, uncontrolled. 2. Hypertension. 3. Hyperlipidemia. 4. History of asthma. 5. Anxiety. 6. History of opioid addiction. 7. Obstructive sleep apnea on CPAP at night. 8. Mediastinal lymphadenopathy. 9. Elevated liver function test. 10.Hyponatremia. PLAN: 1. Type 2 diabetes mellitus, uncontrolled. The patient presents with a blood sugar of 533. The patient did not have any formal diabetic evaluation. The patient is not checking his blood sugars at home as suggested. He is only on metformin. His recent hemoglobin A1c from May 18 is 8.9, suggestive of uncontrolled diabetes. He had a hemoglobin A1c of 6.7 back in November of 2017. The patient will be referred to observation status. We will have him on insulin regimen. The patient weighs around 274 lbs, so almost 100 kg. We will start him on 0.6 units/kg body weight of insulin with divided doses of long-acting and short-acting insulin and further dose adjust insulin as needed. The patient might benefit from distresser as an outpatient. We will keep him hydrated with IV fluids. Maintain euvolemic status. 2. Hyponatremia. This could be pseudohyponatremia from hyperglycemia. Recheck a basic metabolic panel in a.m. Continue with IV normal saline. 3. Elevated liver function test. Exact etiology not clear. Recheck liver function test in a.m. If it is still elevated, then one might consider getting an ultrasound of the abdomen. 4. Obstructive sleep apnea. The patient will be encouraged to use CPAP at night. 5. Obesity. The patient was educated about weight reduction and diet modification. He would need dietitian consultation as an outpatient also. 6. History of asthma. Continue with current inhalation treatment. 7. History of anxiety and depression. Continue with Wellbutrin 300 mg daily and paroxetine. 8. Deep vein thrombosis prophylaxis. We will have him on Lovenox for deep vein thrombosis prophylaxis. 9. Code status. The patient wants to be full code. 10.Discussed with Stephon Duran, ER staff regarding the plan of care. Reviewed the labs and medications. Reviewed the old charts. [facility] /[id number]
[2018-05-19] MEDS: Omeprazole 20 MG Cap.CR PO SCH (05:29)
[2018-05-19 06:57] LABS: ANION GAP 10.4; CHLORIDE,CL 105 mmol/L (101-111); SODIUM,NA 138 mmol/L (135-145)
[2018-05-19] MEDS ORDERED: [UNRECOGNIZED DRUG - OTHER] PO SCH (08:00)
[2018-05-19] MEDS ORDERED: NALOXONE HCL PO SCH (08:00)
[2018-05-19] MEDS ORDERED: BUPRENORPHINE HCL PO SCH (08:00)
[2018-05-19] MEDS: buPROPion 150 MG Tab.ER PO SCH (08:30)
[2018-05-19] MEDS: Insulin Aspart 100 Units/ML 3 ML Pen SUBCUT SCH ×7 (08:31→21:59)
[2018-05-19] MEDS: Triamcinolone Acetonide 0.1% Crm 15 GM Tube TOP SCH (08:33)
[2018-05-19] MEDS: Formoterol/Mometasone 200-5 MCG 8.8 GM Inhaler IH SCH (08:33)
[2018-05-19] MEDS: Enoxaparin 40 MG/0.4 ML Syringe SUBCUT SCH (08:34)
[2018-05-19] MEDS: Sodium Chloride 0.9% 1,000 ML IV SCH (10:31)
[2018-05-19] MEDS: Insulin Detemir 100 Units/ML 3 ML Pen SUBCUT SCH (22:00)
[2018-05-19] MEDS: PARoxetine 20 MG Tab PO SCH (22:02)
[2018-05-20] MEDS: Omeprazole 20 MG Cap.CR PO SCH (07:14)
[2018-05-20] MEDS ORDERED: Glimepiride 2 MG Tab PO SCH (09:00)
[2018-05-20] MEDS: Insulin Aspart 100 Units/ML 3 ML Pen SUBCUT SCH ×4 (09:20→12:14)
[2018-05-20] MEDS: buPROPion 150 MG Tab.ER PO SCH (09:22)
[2018-05-20] MEDS: Enoxaparin 40 MG/0.4 ML Syringe SUBCUT SCH (09:22)
[2018-05-20] MEDS: Formoterol/Mometasone 200-5 MCG 8.8 GM Inhaler IH SCH (09:29)
[2018-05-20] MEDS: Triamcinolone Acetonide 0.1% Crm 15 GM Tube TOP SCH (09:29)
[2018-05-20 11:02] VITALS: BP 139/78
== END 2018-05-20 13:30 | disposition home or self-care (01) ==
LOC: DL.ED 14:38 → DL.MS 17:40 → UNDOADMOB 17:40 → DL.MS 18:33
PROVIDERS: ADMIT Internal Medicine; ATTEND Internal Medicine
DX: E11.65 Type 2 diabetes mellitus with hyperglycemia (principal); I10 Essential (primary) hypertension; J45.909 Unspecified asthma, uncomplicated; F17.210 Nicotine dependence, cigarettes, uncomplicated; E66.9 Obesity, unspecified; Z68.41 Body mass index [BMI] 40.0-44.9, adult; E78.5 Hyperlipidemia, unspecified; F41.9 Anxiety disorder, unspecified; R94.5 Abnormal results of liver function studies; E87.1 Hypo-osmolality and hyponatremia; G47.33 Obstructive sleep apnea (adult) (pediatric); R59.0 Localized enlarged lymph nodes; Z79.84 Long term (current) use of oral hypoglycemic drugs; Z79.899 Other long term (current) drug therapy; Z99.89 Dependence on other enabling machines and devices; Z88.5 Allergy status to narcotic agent
CPT/HCPCS: 36415; 36600; 80048; 80053; 80076; 82009; 82140; 82803; 82962; 85025; 96360; 96361; 96372; 99285; A9270; G0378; J1650; J1815; J7030

== ENCOUNTER → 2019-03-13 | Outpatient (CLI) | payer MEDICAID ==
[~2019-03-13] MED LIST: Barium Sulfate w/v 2.1% Oral Susp 450 ML Bottle PO ONE; Iopamidol 612 MG/ML 50 ML SDV IVPUSH ONE; Iopamidol 612 MG/ML 75 ML Bottle IVPUSH ONE
== END ==
LOC: DL.CT 08:08
PROVIDERS: ATTEND Internal Medicine Gastroenterology
DX: R94.5 Abnormal results of liver function studies (principal); K44.9 Diaphragmatic hernia without obstruction or gangrene; K57.30 Diverticulosis of large intestine without perforation or abscess without bleeding; K76.89 Other specified diseases of liver
CPT/HCPCS: 74177; Q9967

== ENCOUNTER 2022-10-17 14:42 | Emergency (ER) | payer MEDICARE, MEDICAID ==
[2022-10-17] MEDS ORDERED: Ondansetron 4 MG Tab.DIS PO ONE (14:43)
[2022-10-17 15:17] VITALS: BP 130/93; PULSE 86
[2022-10-17 16:07] LABS: CORONAVIRUS COVID-19 NAA NEGATIVE (NEGATIVE)
[2022-10-17] MEDS ORDERED: Ondansetron 4 MG Tab.DIS ONE (17:15)
== END 2022-10-17 17:17 | disposition home or self-care (01) ==
LOC: DL.ED 14:42
DX: A08.4 Viral intestinal infection, unspecified (principal); F17.210 Nicotine dependence, cigarettes, uncomplicated; I10 Essential (primary) hypertension; E11.9 Type 2 diabetes mellitus without complications; E66.9 Obesity, unspecified; Z68.37 Body mass index [BMI] 37.0-37.9, adult; Z79.899 Other long term (current) drug therapy; Z20.822 Contact with and (suspected) exposure to COVID-19
CPT/HCPCS: 0240U; 82947; 99284; A9270

== ENCOUNTER 2024-03-15 17:30 | Emergency (ER) | payer MEDICARE, MEDICAID ==
[2024-03-15 18:04] LABS: BASOPHILS PERCENT AUTO 0.4 % (0.0-1.0); EOSINOPHILS PERCENT AUTO 1.3 % (1.0-3.0); HEMATOCRIT 43.8 % (40.0-54.0); HEMOGLOBIN 15.1 g/dL (14.0-18.0); LYMPHOCYTES PERCENT AUTO 32.9 % (20.5-50.1); MEAN CORPUSCULAR HEMOGLOBIN 29.1 pg (27.0-34.0); MEAN CORPUSCULAR HGB CONC 34.5 g/dL (33.0-35.0); MEAN CORPUSCULAR VOLUME 84.4 fL (80-100); MONOCYTES PERCENT AUTO 9.7 % (2-8); NEUTROPHILS PERCENT AUTO 55.7 % (42.2-75.2); PLATELET COUNT,PLT 294 10^3/uL (150-450); RED BLOOD CELL COUNT 5.19 10^6/uL (4.6-6.2); WHITE BLOOD CELL COUNT,WBC 9.4 10^3/uL (5.0-10.0)
[2024-03-15 18:15] VITALS: BP 146/91; PULSE 103
[2024-03-15 18:21] LABS: ALANINE AMINOTRANSFERASE,ALT 35 U/L (16-63); ALBUMIN 3.8 g/dL (3.4-5.0); ALKALINE PHOSPHATASE 102 U/L (46-116); ANION GAP 12.5 mEq/L (7-13); ASPARTATE AMNIOTRANSFERASE,AST 23 U/L (15-37); BILIRUBIN TOTAL 0.3 mg/dL (0.2-1.0); BLOOD UREA NITROGEN,BUN 8 mg/dL (7-18); BUN/CREATININE RATIO 10.1 (No establ ref range); C-REACTIVE PROTEIN < 0.50 ng/dL (<=0.50); CALCIUM 9.1 mg/dL (8.5-10.1); CARBON DIOXIDE,CO2 30 mmol/L (21-32); CHLORIDE,CL 102 mmol/L (98-107); CREATININE 0.79 mg/dL (0.70-1.30); EST CRCL DRUG DOSING (CG) 117.85 mL/min; ESTIMATED GFR 114 mL/min (>=60); GLUCOSE RANDOM 93 mg/dL (70-99); MAGNESIUM 1.9 mg/dL (1.8-2.4); POTASSIUM,K 3.5 mmol/L (3.5-5.1); PROTEIN TOTAL,TP 7.5 g/dL (6.4-8.2); SODIUM,NA 141 mmol/L (136-145)
[2024-03-15 18:26] LABS: LACTIC ACID 1.1 mmol/L (0.4-2.0)
[2024-03-15] MEDS: cefTRIAXone 1 GM Vial IVPUSH ONE (18:34)
== END 2024-03-15 19:18 | disposition home or self-care (01) ==
LOC: DL.ED 17:30
DX: L03.116 Cellulitis of left lower limb (principal); I10 Essential (primary) hypertension; K21.9 Gastro-esophageal reflux disease without esophagitis; E11.9 Type 2 diabetes mellitus without complications; E66.9 Obesity, unspecified; Z79.899 Other long term (current) drug therapy; Z88.5 Allergy status to narcotic agent; Z88.8 Allergy status to other drugs, medicaments and biological substances; Z68.38 Body mass index [BMI] 38.0-38.9, adult
CPT/HCPCS: 36415; 73590; 80053; 83605; 83735; 85025; 86140; 93971; 96374; 99284; J0696

== ENCOUNTER 2025-04-04 15:29 | Emergency (ER) | payer MEDICARE, MEDICAID ==
[2025-04-04 16:48] VITALS: BP 142/89; PULSE 80
== END 2025-04-04 16:38 | disposition home or self-care (01) ==
LOC: DL.ED 15:29
DX: L97.929 Non-pressure chronic ulcer of unspecified part of left lower leg with unspecified severity (principal); I10 Essential (primary) hypertension; E11.9 Type 2 diabetes mellitus without complications; E66.9 Obesity, unspecified; K21.9 Gastro-esophageal reflux disease without esophagitis; M19.90 Unspecified osteoarthritis, unspecified site; Z88.5 Allergy status to narcotic agent; Z88.8 Allergy status to other drugs, medicaments and biological substances; Z88.0 Allergy status to penicillin; Z79.899 Other long term (current) drug therapy; Z79.51 Long term (current) use of inhaled steroids; Z68.39 Body mass index [BMI] 39.0-39.9, adult
CPT/HCPCS: 87070; 87077; 87186; 99283

== ENCOUNTER 2025-06-04 12:28 | Emergency (ER) | payer MEDICARE, MEDICAID ==
[2025-06-04] MEDS: Tobramycin 0.3% Ophth Drops 5 ML Bottle ONE (13:28)
[2025-06-04 14:08] VITALS: BP 136/98; PULSE 84
== END 2025-06-04 13:29 | disposition home or self-care (01) ==
LOC: DL.ED 12:28
DX: H00.11 Chalazion right upper eyelid (principal); I10 Essential (primary) hypertension; J45.909 Unspecified asthma, uncomplicated; E11.9 Type 2 diabetes mellitus without complications; K21.9 Gastro-esophageal reflux disease without esophagitis; Z88.5 Allergy status to narcotic agent; Z88.8 Allergy status to other drugs, medicaments and biological substances; Z88.0 Allergy status to penicillin; Z79.51 Long term (current) use of inhaled steroids; Z79.84 Long term (current) use of oral hypoglycemic drugs; Z79.899 Other long term (current) drug therapy
CPT/HCPCS: 99283; A9270